=== PATIENT | male | born 1980 | race Caucasian/White ===

== ENCOUNTER 2019-11-24 19:58 | Emergency (ER) | payer BC ==
--- NOTE | 2019-11-24 21:05 | EDM.PDOC ---
ED HPI GENERAL MEDICAL PROBLEM - General Chief Complaint: Genitourinary Problem Stated Complaint: LOWER ABDOMINAL PAIN Time Seen by Provider: 11/24/19 20:03 Source of Information: Reports: Patient History Limitations: Reports: No Limitations - History of Present Illness INITIAL COMMENTS - FREE TEXT/NARRATIVE: Mr. Peña is a most pleasant 39-year-old man with a past medical history significant for hypertension, who states that he developed right groin pain, a dull ache, that radiates down to his right teste and up to his right lower quadrant, around 16:45 yesterday afternoon, while installing a umbrella cutter. He does not recall that he strained himself, however. The pain resolved around 11: 30 to noon today, but then recurred again around 16:30 this afternoon. The pain is made worse with palpation, or if he lies in a prone position that applies pressure to his lower right abdomen. The pain is also made worse if he coughs, or when he sits down or stands up. Bumps in the road on his way to the ED bothered him. Having a bowel movement or urinating increases his pain, although he denies any dysuria or urinary frequency. The pain is constant if he remains still. He has not identified anything that allows resolution of his pain. He has no associated fever, nausea, vomiting, constipation, or diarrhea. No prior similar symptoms. The patient has not taken any [id number] or home remedies to treat his symptoms. He last ate at 15:30 this afternoon. The patient's PCP is Dr. Chicho Stephens. He did not receive an influenza vaccine this season, and declined an offer to receive one here today. Right Groin Pain Score (Numeric/FACES): 2 - Related Data Allergies Allergy/AdvReac Type Severity Reaction Status Date / Time No Known Allergies Allergy Verified 11/24/19 20:20 Home Meds: Home Meds Lisinopril/Hydrochlorothiazide [Lisinopril-HCTZ 10-12.5 MG] 1 tab PO DAILY 11/24 [History] Past Medical History Cardiovascular History: Reports: Hypertension Endocrine/Metabolic History: Reports: Obesity/BMI 30+ - Past Surgical History HEENT Surgical History: Reports: Oral Surgery (wisdom teeth extraction) Social & Family History - Tobacco Use Smoking Status *Q: Never Smoker - Caffeine Use Caffeine Use: Reports: Coffee - Alcohol Use Alcohol Use History: Yes Alcohol Use Frequency: Rarely - Recreational Drug Use Recreational Drug Use: No - Living Situation & Occupation Living situation: Reports: , with Spouse, with Family (3 kids) 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 ED EXAM, GI/ABD - Physical Exam Exam: See Below Exam Limited By: No Limitations General Appearance: Alert, WD/WN, No Apparent Distress Eyes: Bilateral: Normal Appearance, EOMI Ears: Normal External Exam, Hearing Grossly Normal Nose: Normal Inspection Throat/Mouth: Normal Inspection, Normal Lips, Normal Voice, No Airway Compromise Head: Atraumatic, Normocephalic Neck: Normal Inspection, Full Range of Motion Respiratory/Chest: No Respiratory Distress, Lungs Clear, Normal Breath Sounds, No Accessory Muscle Use Cardiovascular: Normal Peripheral Pulses, Regular Rate, Rhythm, No Edema, No Gallop, No JVD, No Murmur, No Rub GI/Abdominal Exam: Normal Bowel Sounds, Soft, No Organomegaly, No Distention, No Abnormal Bruit, No Mass, Tender (Right lower quadrant only. Nontender elsewhere.), Other (Psoas sign present. Obturator sign present. Heel drop sign present.) (Male) Exam: No Hernia, Normal Inspection Rectal (Males) Exam: Deferred Back Exam: Normal Inspection, Full Range of Motion. No: CVA Tenderness (L), CVA Tenderness (R) Extremities: Normal Inspection, Normal Range of Motion, No Pedal Edema, Normal Capillary Refill Neurological: Alert, Oriented, Normal Cognition, No Motor/Sensory Deficits Psychiatric: Normal Affect Skin Exam: Warm, Dry, Intact, Normal Color, No Rash Course - Vital Signs Last Recorded V/S: Last Vital Signs Temp 36.7 C 11/24/19 20:23 Pulse 78 11/24/19 20:23 Resp 20 11/24/19 20:23 BP 142/97 H 11/24/19 20:23 Pulse Ox 94 L 11/24/19 20:23 - Re-Assessments/Exams Free Text/Narrative Re-Assessment/Exam: 11/24/19 20:57 The patient's history and physical examination are most concerning for acute appendicitis. I recommended a workup that includes blood work, a urinalysis (to rule out an unusual presentation of a UTI) and a CT scan of his abdomen and pelvis with oral and IV contrast. I have since learned, however, that our CT scan is down and unable to perform IV contrast studies. The CT scan is not expected to be repaired until tomorrow afternoon. One option would be to put the patient on IV antibiotics and admit him to the hospital until the CT scan is available. The other option is to transfer the patient to [place] where he could receive the workup tonight. I posed these options to the patient, and he prefers transfer to [place]. He prefers [facility]. 11/24/19 21:14 Case discussed with [facility] One call at 21:09. Case then discussed with Dr. Laura, Emergency Physician at [facility], at 21:12. She accepted the patient for transfer to their facility. The patient will go by private vehicle. Departure - Departure Time of Disposition: 21:15 Disposition: Home, Self-Care 01 Condition: Good Clinical Impression: Right lower quadrant abdominal pain - Discharge Information *PRESCRIPTION DRUG MONITORING PROGRAM REVIEWED*: Not Applicable *COPY OF PRESCRIPTION DRUG MONITORING REPORT IN PATIENT ERIC: Not Applicable Referrals: Chicho Stephens MD [Primary Care Provider] - Forms: ED Department Discharge Additional Instructions: You were seen in the emergency room for lower right abdominal/right groin pain since yesterday afternoon. Based on your history and physical examination, there is a very good chance that you are suffering from acute appendicitis. Unfortunately, our CT scan is down, therefore we cannot perform the needed studies at this time. Please go directly to the [facility] emergency room. They are expecting you. DO NOT STOP AND EAT OR DRINK ANYTHING. Sepsis Event Note - Evaluation Sepsis Screening Result: No Definite Risk - Focused Exam Vital Signs: Vital Signs Temp Pulse Resp BP Pulse Ox 11/24/19 20:23 36.7 C 78 20 142/97 H 94 L Date Exam was Performed: 11/24/19 Time Exam was Performed: 21:21
== END 2019-11-24 21:30 | disposition home or self-care (01) ==
LOC: JD.ED 19:58
DX: R10.31 Right lower quadrant pain (principal); I10 Essential (primary) hypertension; E66.9 Obesity, unspecified; Z68.33 Body mass index [BMI] 33.0-33.9, adult; Z79.899 Other long term (current) drug therapy
CPT/HCPCS: 99282; 99283

== ENCOUNTER 2021-11-13 09:28 | Emergency (ER) | payer BC ==
[2021-11-13] MEDS ORDERED: Dexamethasone 4 MG/ML SDV IVPUSH ONE (10:10)
[2021-11-13] MEDS ORDERED: Ketorolac 15 MG/ML SDV IVPUSH ONE (10:10)
[2021-11-13] MEDS ORDERED: Iopamidol 755 Mg/ML 100 ML Bottle IVPUSH ONE (11:13)
[2021-11-13] MEDS ORDERED: Sodium Chloride 0.9% 100 ML IV SCH (11:15)
== END 2021-11-13 14:22 | disposition home or self-care (01) ==
LOC: JD.ED 09:28
DX: U07.1 COVID-19 (principal); J12.82 Pneumonia due to coronavirus disease 2019; R09.02 Hypoxemia; I10 Essential (primary) hypertension; E66.9 Obesity, unspecified; Z68.33 Body mass index [BMI] 33.0-33.9, adult; Z86.16 Personal history of COVID-19
CPT/HCPCS: 36415; 71045; 71275; 80053; 85025; 85379; 85610; 96374; 96375; 99285; J1100; J1885; Q9967

== ENCOUNTER 2021-11-18 11:15 | Emergency (ER) | payer BC ==
[2021-11-18] MEDS ORDERED: Sodium Chloride 0.9% 10 ML Syringe FLUSH PRN (11:41)
== END 2021-11-18 19:30 ==
LOC: JD.ED 11:15
DX: U07.1 COVID-19 (principal); J12.82 Pneumonia due to coronavirus disease 2019; R09.02 Hypoxemia; I10 Essential (primary) hypertension; E66.9 Obesity, unspecified; Z68.35 Body mass index [BMI] 35.0-35.9, adult; Z79.899 Other long term (current) drug therapy; Z86.16 Personal history of COVID-19
CPT/HCPCS: 36415; 71045; 71045-26; 80053; 83735; 84484; 85025; 85379; 86140; 93005; 99285-25